=== PATIENT | male | born 1960 | race Asian ===

== ENCOUNTER 2018-07-08 08:54 | Emergency (ER) | payer BC ==
[2018-07-08] MEDS: KETOROLAC 30 MG INJ IM (09:37)
[2018-07-08] MEDS: ONDANSETRON (ODT) 4 MG TAB ODT (09:38)
[2018-07-08] MEDS: HYDROCODONE/APAP (5/325) TAB PO (09:38)
== END 2018-07-08 11:26 | disposition home or self-care (01) ==
LOC: FTE 08:54
DX: M54.41 Lumbago with sciatica, right side (principal); F17.210 Nicotine dependence, cigarettes, uncomplicated; Z79.82 Long term (current) use of aspirin
CPT/HCPCS: 72100; 96372; 99284-25